=== PATIENT | female | born 1990 | race Caucasian/White ===

== ENCOUNTER 2024-10-15 20:35 | Emergency (ER) | payer MEDICARE, SELFPAY ==
[2024-10-15 20:44] VITALS: BP 113/84
[2024-10-15 21:52] VITALS: BMI 28.9
[2024-10-15] MEDS: DUONEB 3 ML INH (21:54)
[2024-10-15 22:40] LABS: Red Blood Cell Count 4.21 10^6/uL (4.20-5.40); White Blood Cell Count 8.3 10^3/uL (4.8-10.8)
[2024-10-15 22:41] LABS: % Basophils 0.8 % (0-2); % Eosinophils 0.8 % (0-6); % Immature Granulocytes 0.2 % (0-0.5); % Lymphocytes 44.5 % (20.5-51.1); % Monocytes 6.5 % (1.7-9.3); % Neutrophils 47.2 % (42.2-75.2); Absolute Basophils 0.1 10^3/uL (0-0.2); Absolute Eosinophils 0.1 10^3/uL (0-0.7); Absolute Lymphocytes 3.7 10^3/uL (1.2-3.4); Absolute Monocytes 0.5 10^3/uL (0.1-0.6); Absolute Neutrophils 3.9 10^3/uL (1.4-6.5); Hematocrit 38.7 % (37.0-47.0); Hemoglobin 13.6 g/dL (12.0-16.0); Mean Corp Hgb Conc. 35.1 g/dL (33.0-37.0); Mean Corpuscular Hgb 32.3 pg (27.0-31.0); Mean Corpuscular Volume 91.9 fL (81.0-99.0); Mean Platelet Volume 9.7 fL (7.4-10.4); Nucleated Red Blood Cells % 0 %; Platelet Count 378 10^3/uL (130-400); Red Cell Dist. Width 12.9 % (11.5-14.5)
[2024-10-15 23:04] LABS: ALT (SGPT) 16 U/L (0-35); AST (SGOT) 19 U/L (14-36); Albumin 5.1 g/dl (3.5-5.0); Alkaline Phosphatase 40 U/L (38-126); Blood Urea Nitrogen 11 mg/dl (7-17); Calcium 10.5 mg/dl (8.4-10.2); Carbon Dioxide 23 mmol/L (22-30); Chloride 107 mmol/L (98-107); Estimated Creatinine Clearance 117 ml/min; Glucose 101 mg/dl (70-99); Sodium 140 mmol/L (135-145); Total Bilirubin 0.3 mg/dl (0.2-1.3); eGFR > 60.00
[2024-10-16 00:03] VITALS: BP 129/70
--- NOTE | 2024-10-16 00:12 | ED.GENMED ---
History of Present Illness
General
Chief Complaint: Breathing Problem
Source: patient
Exam Limitations: none
Time Seen by Provider: 10/15/24 22:02
History of Present Illness
History of Present Illness:
34-year-old female with history of asthma presents with onset of shortness of breath and cough. She was treated for pneumonia and is just about to finish her course of antibiotics. She was on steroid which she finished about a week ago. She has
been using her inhalers however today she developed a coughing fit with a dry cough and tightness in her throat and difficulty breathing. No chest pain. No leg swelling or calf pain. No recent travel or surgery. No fevers. No other complaints
at this time
Past History
Past History
ED Past Medical History: Asthma and Other (Autonomic nervous system dysfunction, chronic regional pain syndrome, spinal cord injury, rectal prolapse, cervical dysplasia, nephrolithiasis)
ED Past Surgical History: Gynecological (Hysterectomy) and Orthopedic
Patient has exhibited threatening behavior?: No
PSI?: No
Social History
Tobacco: Non-smoker
Alcohol: None
Drug: None
Personal: Single
Living: with family
Employment: Employed
Family History
Family History: Other (Noncontributory)
Phy Exam
Physical Exam
Physical Exam:
General: Well-appearing female no acute respiratory distress
HEENT: Normocephalic atraumatic posterior pharynx without erythema or exudate no trismus or drooling
Heart: Regular rate and rhythm
Lungs: Clear no wheeze or rales
Extremities: No cyanosis or edema
Skin: Warm no rash
Sepsis
Sepsis Screening
Sepsis Assessment: Sepsis Ruled Out
Sepsis Screen
Sepsis Screen: Sepsis Ruled Out
Date: 10/16/24
Time: 00:16
Course
Orders/Labs/Results
Orders:
Orders
10/15/24 21:35
EKG [Electrocardiogram (*1)] Stat
Reason for Study: Chest Pain
10/15/24 21:36
EKG- Treatment ONCE
10/15/24 21:50
Ipratropium/Albuterol Sulfate [Duoneb] 3 ml .ROUTE .STK-MED ONE
10/15/24 21:54
Ipratropium/Albuterol Sulfate [Duoneb] 3 ml INH R NOW ONE
10/15/24 22:26
CR Chest - 2 Views Urgent
Comment:
Reason For Exam: sob
10/15/24 22:32
Complete Blood Count/With Diff Urgent
Comprehensive Metabolic Panel Urgent
Abnormal Lab Results
10/15/24
22:32
MCH 32.3 H pg
(27.0-31.0)
Absolute Lymphs (auto) 3.7 H 10^3/uL
(1.2-3.4)
Glucose 101 H mg/dl
(70-99)
Calcium 10.5 H mg/dl
(8.4-10.2)
Albumin 5.1 H g/dl
(3.5-5.0)
10/15/24 22:32
10/15/24 22:32
Vital Signs
Initial and Last Documented VS:
Initial Vital Signs
Temp Pulse Resp BP Pulse Ox
98.9 F 98 24 113/84 98
10/15/24 20:44 10/15/24 20:44 10/15/24 20:44 10/15/24 20:44 10/15/24 20:44
Last Documented Vital Signs
Temp Pulse Resp BP Pulse Ox
98.9 F 96 14 129/70 98
10/15/24 20:44 10/16/24 00:03 10/16/24 00:03 10/16/24 00:03 10/16/24 00:03
MDM/Problems Addressed
Differential Diagnosis Includes:
Patient with shortness of breath difficulty breathing was using rescue inhalers without significant relief. She was given a DuoNeb on arrival here and is actually feeling better. Lungs are clear not hypoxic. Recent diagnosis of pneumonia. Repeat
chest x-ray today negative for acute finding. Patient feeling better. No indication for admission.
*Critical Care Note
Total Time (30-74mins, 75-104mins- exclusive of procedures): Not Applicable
ED Attending Note
-
Portions of this chart may have been created with voice recognition software.� Occasional wrong word or��sound alike� substitutions may have occurred due to the inherent limitations of voice recognition software.
Discharge Plan
Departure
Patient Disposition: Home (Routine Discharge)
Date of Disposition: 10/16/24
Time of Disposition: 00:15
Patient with high blood pressure during this ER visit?: No
Discharge Problem:
Asthma
Instructions: Asthma, Adult (DC)
Prescriptions:
No Action
venlafaxine 150 mg Capsule,Extended Release 24hr
150 mg PO DAILY
diazepam [Valium] 10 mg Tablet
10 mg PO BID
Patient Comments:
11/16/2022: last filled 10/31/22, 60 tabs for 30 days from [id number]
tizanidine 4 mg tablet
4 mg PO Q8H PRN (Reason: muscle spasms)
albuterol sulfate [ProAir HFA] 90 mcg/actuation HFA aerosol inhaler
1 puff inhalation R Q4 PRN (Reason: sob)
guar gum Packet
1 tbsp PO DAILY
cetirizine [Zyrtec] 10 mg Tablet
10 - 20 mg PO DAILY
melatonin 10 mg Tablet
10 mg PO HS
acetaminophen 500 mg Tablet
1,000 mg PO Q6H
hydromorphone 2 mg tablet
4 mg PO Q6H PRN (Reason: severe pain)
Patient Comments:
11/16/2022: last filled 11/11/22, 12 tabs for 3 days from [id number]
simethicone 80 mg tablet,chewable
80 mg PO QID PRN (Reason: gas/bloating)
Referrals:
NONE,* [Family Provider] -
Activity Restrictions/Additional Instructions:
Suspect this is likely related to your asthma. Chest x-ray is clear today. Continue with inhaler and antibiotic as previously prescribed. Return if worse otherwise
Interventions
Interventions:
*Risk Screen - Suicide Last Done: 10/15/24 20:44
*General Assessment Last Done: 10/15/24 22:27
*Neglect/Abuse Screening Last Done: 10/15/24 20:44
*ED- Fall Risk Assessment Last Done: 10/15/24 22:27
*ED COVID-19 Vaccine History Last Done: 10/15/24 22:27
ED- Cardiac Assessment Last Done: 10/15/24 22:27
ED- Pulmonary Assessment Last Done: 10/15/24 22:27
Discharge Date and Time
Print Language: FIJIAN
[2024-10-16] MEDS: DELTASONE 40 MG PO (00:47)
[2024-10-16 00:53] VITALS: BP 129/70
== END 2024-10-16 00:56 | disposition home or self-care (01) ==
LOC: EMR 20:35
PROVIDERS: Physician Assistant; EMERGENCY PHYSICIAN Student in an Organized Health Care Education/Training Program
DX: J45.909 Unspecified asthma, uncomplicated (principal); Z87.442 Personal history of urinary calculi; Z90.710 Acquired absence of both cervix and uterus
CPT/HCPCS: 99283; 94640; 71046; 80053; 85025